=== PATIENT | female | born 1970 | race African-American/Black ===

== ENCOUNTER 2018-01-21 21:12 | Emergency (ER) | payer OTHER ==
[~2018-01-21] VITALS: Ht 172.7 cm; Wt 170.1 kg
[~2018-01-21 21:12] MED LIST: CEPHALEXIN 500500 M3 PO; CLEOCIN HCL300 MG PO; DOXYCYCLINE 10100 MG PO; FLEXERIL PO; HYDROCODON-ACE1 EAC7 PO; HYDROCODONE-AP1 EAC6 PO; IBUPROFEN 800800 M1 PO; NAPROSYN375 MG PO; NOHOMEMEDICATIONS; NORCO 5-325 TA1 EACH PO; PROMETH-CODEIN 65 ML PO; TRAMADOL 50 MG50 MG PO
[2018-01-21] MEDS ORDERED: ULTRAM 50MG TAB50 MG PO (22:29)
[2018-01-21] MEDS ORDERED: FLEXERIL PO (22:29)
[2018-01-21 22:41] VITALS: BP 150/67
== END 2018-01-21 22:42 | disposition home or self-care (01) ==
LOC: M.ERS 21:12
DX: S30.0XXA Contusion of lower back and pelvis, initial encounter (principal); Z90.710 Acquired absence of both cervix and uterus; Z90.49 Acquired absence of other specified parts of digestive tract; Z88.0 Allergy status to penicillin; Z98.890 Other specified postprocedural states; V49.50XA Passenger injured in collision with unspecified motor vehicles in traffic accident, initial encounter; Y93.89 Activity, other specified; Y92.89 Other specified places as the place of occurrence of the external cause; Y99.8 Other external cause status

== ENCOUNTER → 2019-01-31 | Outpatient (CLI) | payer OTHER, MEDICAID ==
[~2019-01-31] MED LIST changes: +ULTRAM 50MG TAB50 MG PO
== END ==
LOC: M.RAD 09:39
DX: Z12.31 Encounter for screening mammogram for malignant neoplasm of breast (principal)

== ENCOUNTER 2020-08-12 05:15 | Emergency (ER) | payer MEDICARE, MEDICAID ==
[~2020-08-12] VITALS: Ht 175.3 cm; Wt 206.4 kg
[2020-08-12] MEDS ORDERED: FLONASE 0.05%50 MCG NARES (05:25)
[2020-08-12] MEDS ORDERED: PROAIR HFA8.5 GM INH (05:25)
[2020-08-12 06:28] VITALS: BP 153/86
== END 2020-08-12 06:28 | disposition home or self-care (01) ==
LOC: M.ERS 05:15
DX: H61.21 Impacted cerumen, right ear (principal); Z88.1 Allergy status to other antibiotic agents; Z98.890 Other specified postprocedural states; Z90.710 Acquired absence of both cervix and uterus; Z98.51 Tubal ligation status; Z90.49 Acquired absence of other specified parts of digestive tract

== ENCOUNTER → 2021-06-03 | Outpatient (CLI) | payer OTHER, MEDICAID ==
[~2021-06-03] MED LIST changes: +FLONASE 0.05%50 MCG NARES; +PROAIR HFA8.5 GM INH
== END ==
LOC: M.ULTRA 16:00
PROVIDERS: ATTEND Registered Nurse Diabetes Educator
DX: M79.605 Pain in left leg (principal)

== ENCOUNTER → 2021-10-18 | Outpatient (CLI) | payer OTHER, MEDICAID | LOC: M.ULTRA 10-14 10:35 | PROVIDERS: ATTEND Registered Nurse Diabetes Educator | DX: M79.601 Pain in right arm (principal) ==